=== PATIENT | male | born 1945 | race Hispanic/Latino ===

== ENCOUNTER 2016-09-15 11:27 | Inpatient (IN) | payer MEDICARE ==
--- NOTE | 2016-09-15 11:54 | ED PDOC ---
Psych Transfer Clearance - Clearance Statement Clearance Statement: Reviewed vital signs, lab results and transfer papers. Patient clinically stable for psychiatric admission. PT CLEARED BY DR ALCANTARA
[2016-09-15 12:48] VITALS: BMI 22.3
[2016-09-15] MEDS ORDERED: Bismuth Subsalicylate 262 mg/15 ml Sus (240 ml) PO PRN (12:56)
[2016-09-15] MEDS ORDERED: Magnesium Hydroxide Susp 30 ml UD PO PRN (12:56)
[2016-09-15] MEDS ORDERED: Alum-Mag Hydrox-Simethicone Susp (30 mL) PO PRN (12:56)
--- NOTE | 2016-09-15 13:55 | CP.PCM.CON ---
History of Present Illness - History of Present Illness History of Present Illness: 71 yo male with history of mental retardation, DM2, Hypothyroidism, Glaucoma and Pacemaker placement? sent here from a supportive [facility] because of worsening depression. Review of Systems - Review of Systems Systems not reviewed;Unavailable: Other (mental retardation) Past Patient History - Tetanus Immunizations Tetanus Immunization: Unknown - Past Social History Smoking Status: Unknown If Ever Smoked Alcohol: None - CARDIAC Hx Cardiac Disorders: Yes Hx Pacemaker: Yes (left) - PULMONARY Hx Respiratory Disorders: No - NEUROLOGICAL Other/Comment: mentally challenged, low IQ - HEENT Hx Glaucoma: Yes - RENAL Hx Chronic Kidney Disease: No - ENDOCRINE/METABOLIC Hx Diabetes Mellitus Type 2: Yes Hx Hypothyroidism: Yes - HEMATOLOGICAL/ONCOLOGICAL Hx Blood Disorders: No - INTEGUMENTARY Hx Dermatological Problems: No - MUSCULOSKELETAL/RHEUMATOLOGICAL Hx Falls: Yes Hx Unsteady Gait: No - GASTROINTESTINAL Hx Gastrointestinal Disorders: No - GENITOURINARY/GYNECOLOGICAL Hx Genitourinary Disorders: No - PSYCHIATRIC Hx Anxiety: Yes Hx Bipolar Disorder: Yes Hx Depression: Yes Hx Schizophrenia: Yes - SURGICAL HISTORY Hx Surgeries: No - ANESTHESIA Hx Anesthesia: No Meds Allergies/Adverse Reactions: Allergies Allergy/AdvReac Type Severity Reaction Status Date / Time No Known Allergies Allergy Verified 09/15/16 11:49 - Medications Medications: Current Medications Acetaminophen (Tylenol 325mg Tab) 650 mg PO Q4 PRN PRN Reason: Pain, moderate (4-7) Al Hydrox/Mg Hydrox/Simethicone (Maalox Plus 30 Ml) 30 ml PO Q4 PRN PRN Reason: Dyspepsia Bismuth Subsalicylate (Pepto-Bismol) 524 mg PO Q4 PRN PRN Reason: Diarrhea Lorazepam (Ativan) 0.5 mg PO HS PRN PRN Reason: Insomnia Stop: 09/29/16 12:57 Lorazepam (Ativan) 0.5 mg PO Q6 PRN PRN Reason: Anixety/Agitation Stop: 09/29/16 12:57 Magnesium Hydroxide (Milk Of Magnesia) 30 ml PO HS PRN PRN Reason: Constipation Physical Exam - Constitutional Appears: No Acute Distress - Head Exam Head Exam: ATRAUMATIC - Eye Exam Eye Exam: absent: Scleral icterus - ENT Exam ENT Exam: Mucous Membranes Moist - Neck Exam Neck exam: Negative for: Meningismus - Respiratory Exam Respiratory Exam: absent: Rhonchi, Wheezes, Respiratory Distress - Cardiovascular Exam Cardiovascular Exam: REGULAR RHYTHM, +S1, +S2 - GI/Abdominal Exam GI & Abdominal Exam: Soft. absent: Tenderness - Rectal Exam Rectal Exam: Deferred - Neurological Exam Neurological exam: Alert - Psychiatric Exam Psychiatric exam: Flat Affect - Skin Skin Exam: Dry, Intact Results - Vital Signs Recent Vital Signs: Last Vital Signs Temp 97.7 F 09/15/16 13:12 Pulse 60 09/15/16 13:12 Resp 18 09/15/16 13:12 BP 120/64 09/15/16 13:12 Pulse Ox 97 09/15/16 11:53 - Labs Result Diagrams: 09/16/16 06:00 09/16/16 06:00 Assessment & Plan (1) Depression Status: Acute Comment: psyche is managing (2) Mental retardation Status: Acute Comment: psyche is managing (3) DM2 (diabetes mellitus, type 2) Status: Acute Comment: diabetic diet. accuchek ACHS. continue Metformin and Januvia (4) Hypothyroid Status: Acute Comment: continue Levothyroxine 50mcg PO daily
--- NOTE | 2016-09-15 14:16 | PCM.PSYCH ---
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 pt has a history of cognitive delay/ mental retardation(scale is unknown per staff). pt does not have family, reportedly receiving ssd, has history of glaucoma (unknown doctor, unknown last exam per [facility] admin "simone". Pt has history for pacemaker placement ( unknown last exam unknown md). Hx of htn, hypothyroidism, coronary artery disease. pt has history of previous attempts and desires defers detail. reports father is a number of years misses him at times wants to join him. at the time of this writing pt contracts for safety, is seated near nursing station. Current Medications: Active Medications Generic Name Dose Route Start Last Admin Trade Name Freq PRN Reason Stop Dose Admin Acetaminophen 650 mg 09/15/16 12:56 Tylenol 325mg Tab PO Q4 PRN Pain, moderate (4-7) Al Hydrox/Mg Hydrox/Simethicone 30 ml 09/15/16 12:56 Maalox Plus 30 Ml PO Q4 PRN Dyspepsia Bismuth Subsalicylate 524 mg 09/15/16 12:56 Pepto-Bismol PO Q4 PRN Diarrhea Lorazepam 0.5 mg 09/15/16 12:56 Ativan PO 09/29/16 12:57 HS PRN Insomnia Lorazepam 0.5 mg 09/15/16 12:56 Ativan PO 09/29/16 12:57 Q6 PRN Anixety/Agitation Magnesium Hydroxide 30 ml 09/15/16 12:56 Milk Of Magnesia PO HS PRN Constipation Past Psychiatric History - Past Psychiatric History Prior Professional Help: hx mental retardation (unknown intelligence level), hx of suicidal attemp At what hospital: unknown Nature of Treatment: inpt outpt unknown detail History of Family Illness: unknown Pertinent Medical Hx (Current Medical&Sleep Prob, Allergies): Allergies Allergy/AdvReac Type Severity Reaction Status Date / Time No Known Allergies Allergy Verified 09/15/16 11:49 Review of Systems - EENT Eyes: As Per HPI - Psychiatric Psychiatric: Abnormal Sleep Pattern, Anhedonia, Depression, Suicidal Ideation Mental Status Examination - Personal Presentation Personal Presentation: Looks stated age - Affect Affect: Constricted - Motor Activity Motor Activity: Calm - Reliability in Providing Information Reliability in Providing Information: Poor, due to cognitve impairment - Speech Speech: Organized Additional comments: under productive - Mood Mood: Depressed - Formal Thought Process Formal Thought Process: Circumstantial - Obsessions/Compulsions Obsessions: No Compulsions: No - Cognitive Functions Orientation: Person Sensorium: Alert Attention/Concentration: Easily distracted Estimate of Intelligence: Below average Judgement: Imparied, as evidence by: Poor judgement Memory: Recent impaired, as evidence by: Inability to recall events of the day, Recent imparied as evidence by:Inability to complete 3/3 object recall, Recent impaired, as evidenced by: Other, Remote impaired as evidenced by: Inability to recall sig life events, Remote impaired as evidenced by: Inability to recall historical events, Remote impaired as evidenced by: Other - Risk Risk: Suicidal (reddened jason rectal area per staff no notable wounds) DSM 5 DX - DSM 5 DSM 5 Diagnosis: schizoaffective disorder bipolar type suicide attempt: ingestion of bleach (did not actually drink) history of glaucoma ? visually impaired mental retardation/cognitive impaired hx diabetes type II hx of hypothyroidsim hx of CAD hx of pacemaker - Recommended/Plan of Treatment Treatment Recommendations and Plan of Treatment: inpt admission per attending vital signs and visual observation per protocol per status get up slowly use of large print when possible colateral information from detention administer "simone" MINIMAL INFORMATION AVAILABLE Projected ELOS: 5-7 DAYS Prognosis: guarded Discharge Plan and Discharge Criteria: safety - Smoking Cessation Smoking Cessation Initiated: No Reason for not providing: deferred
[2016-09-15] MEDS ORDERED: Naproxen 500 MG TAB PO PRN (15:00)
[2016-09-15] MEDS: PrednisoLONE 1% OPTH SUSP OU SCH (16:02)
--- NOTE | 2016-09-15 20:05 | CARD ---
APPROVED REPORT EKG Measurement Heart [id number] <Conclusion> Atrial-sensed ventricular-paced rhythm Abnormal ECG
[2016-09-16 05:31] VITALS: O2SAT 99
[2016-09-16] MEDS: Levothyroxine 50 MCG TAB PO SCH (06:15)
[2016-09-16 06:32] LABS: HEMOGLOBIN 12.7 g/dL (12.0-18.0); MEAN CELL VOLUME 85.6 fl (80.0-94.0); MEAN CORPUSCULAR HEMOGLOBIN 27.9 pg (27.0-31.0); MEAN CORPUSCULAR HGB CONC 32.5 g/dL (33.0-37.0); RBC 4.57 Mil/uL (4.40-5.90); RED CELL DISTRIBUTION WIDTH 14.6 % (11.5-14.5); WHITE BLOOD COUNT 5.1 K/uL (4.8-10.8)
[2016-09-16 06:46] LABS: ALB/GLOB RATIO 1.9 (1.0-2.1); ALBUMIN 4.4 g/dL (3.5-5.0); ALT/SGPT 40 U/L (21-72); AST/SGOT 32 U/L (17-59); BLOOD UREA NITROGEN 24 mg/dl (9-20); CALCIUM 9.7 mg/dL (8.4-10.2); GFR AFRICAN-AMERICAN > 60; GFR NON-AFRICAN AMERICAN 50; HDL CHOLESTEROL 45 MG/DL (30-70)
[2016-09-16 06:52] LABS: URINE BILIRUBIN NEGATIVE (NEGATIVE); URINE BLOOD NEGATIVE (NEGATIVE); URINE CLARITY CLEAR (Clear); URINE COLOR YELLOW (YELLOW); URINE GLUCOSE (UA) NEG (Normal); URINE LEUKOCYTE ESTERASE NEG Leu/uL (Negative); URINE NITRATE NEGATIVE (NEGATIVE); URINE PROTEIN NEGATIVE (NEGATIVE); URINE UROBILINOGEN 0.2-1.0 mg/dL (0.2-1.0)
[2016-09-16 06:57] LABS: LDL CHOLESTEROL 124 mg/dL (0-129)
[2016-09-16] MEDS ORDERED: BUPROPION PO SCH (09:00)
[2016-09-16] MEDS: PrednisoLONE 1% OPTH SUSP OU SCH ×3 (09:42→17:25)
[2016-09-16 13:34] LABS: FOLATE 8.9 ng/mL
--- NOTE | 2016-09-16 17:27 | PCM.PYCHPN ---
Psychiatric Progress Note - Psychiatric Progress Note Patient seen today, length of contact: chart reviewed,case discussed with team Patient Chief Complaint: wanted to drink bleach to to kill myelf I was thinking of my father-still think of him I cant live by myself-does not want to kill self, contracts for safety, per ability pt placed near nursing station Problems Identified/Issues Discussed: alteration in mood, alteration in self care, family circumstances Medical Problems: per chart pt seen by hospitalist Diagnostic Results: per psychiatry per medicine per nursing per social work per recreational therapy DSM 5 Symptoms Update: lability in mood, limited intellectual functioning Medication Change: No Medical Record Reviewed: Yes Mental Status Examination - Cognitive Function Orientation: Person, Place, Situation Memory: Impaired Attention: Poor Concentration: Poor Association: Loose Fund of Knowledge: Poor Decription of patient's judgement and insights: impaired - Mood Mood: Depressed - Affect Affect: Constricted - Speech Speech: Soft - Formal Thought Process Formal Thought Process: Circumstantial - Homicidal Ideation Homicidal Ideation: No Goal/Treatment Plan - Goal/Treatment Plan Need for Continued Stay: Remain at risks for inpatient hospitalization, Severe functional impairment Progress Toward Problem(s) and Goals/Treatment Plan: inpt admission per attending vital signs and visual observation per protocol per status get up slowly adjust medications per status-pt to start buproprion 75mg po day use of large print when possible colateral information from [facility] administer "simone" MINIMAL INFORMATION AVAILABLE kajal has been in contact with [facility] team discharge planning in progress Estimated Date of D/C: 09/22/16 - Smoking Cessation Smoking Cessation Initiated: No Reason for not providing: deferred
[2016-09-17] MEDS: Levothyroxine 50 MCG TAB PO SCH (06:07)
[2016-09-17] MEDS: PrednisoLONE 1% OPTH SUSP OU SCH ×3 (08:35→16:27)
--- NOTE | 2016-09-17 14:45 | PCM.PYCHPN ---
Psychiatric Progress Note - Psychiatric Progress Note Patient seen today, length of contact: chart reviewed,case discussed with team, Patient Chief Complaint: pt is reported to be seated off by self, reports is feeling down, missing father , requires redirections with adherence with plan of care, pt continues to report being depressed thinking about father who is wanted to drink bleach to to kill myelf I was thinking of my father-still think of him I cant live by myself-does not want to kill self, contracts for safety, per ability pt placed near nursing station Problems Identified/Issues Discussed: alteration in mood, alteration in self care, family circumstances Medical Problems: per chart pt seen by hospitalist Diagnostic Results: per psychiatry per medicine per nursing per social work per recreational therapy DSM 5 Symptoms Update: alteration in cognition alteration in self care alteration in mood Medication Change: No Medical Record Reviewed: Yes Mental Status Examination - Cognitive Function Orientation: Person, Place, Situation Memory: Impaired Attention: Poor Concentration: Poor Association: Loose Fund of Knowledge: Poor Decription of patient's judgement and insights: impaired - Mood Mood: Depressed - Affect Affect: Constricted - Speech Speech: Soft - Formal Thought Process Formal Thought Process: Circumstantial - Suicidal Ideation Suicidal Ideation: Yes Plan: placed near nursing station says would ask for help if wanted to hurt self - Homicidal Ideation Homicidal Ideation: No Goal/Treatment Plan - Goal/Treatment Plan Need for Continued Stay: Remain at risks for inpatient hospitalization, Severe functional impairment Progress Toward Problem(s) and Goals/Treatment Plan: inpt/milieu vital signs and visual observation per protocol per status-pt maintained near nursing station get up slowly use of large print when possible greaser operator has been in contact with [facility] team pt is receiving wellbutrin 75mg po am for mood and anhedonia pt is receiving abilify 30mg po day for paranoia/psychosis, mood pt is receiving remeron 45mg po hs-for mood, sleep, appetite discharge planning in progress pt may need ltc placment Estimated Date of D/C: 09/22/16 - Smoking Cessation Smoking Cessation Initiated: No Reason for not providing: deferred
[2016-09-18] MEDS: Levothyroxine 50 MCG TAB PO SCH (06:53)
[2016-09-18] MEDS: PrednisoLONE 1% OPTH SUSP OU SCH ×2 (08:44→16:17)
--- NOTE | 2016-09-18 12:48 | PCM.PYCHPN ---
Psychiatric Progress Note - Psychiatric Progress Note Patient seen today, length of contact: discussed with team Patient Chief Complaint: nothing helps me sleep Problems Identified/Issues Discussed: pt reports poor sleep. latuda not in hospital formulary but was taking per [facility]. now on abilify. states his main concern is sleep and nothing was helping. he was on trazodone, but will attempt doxepin here. pt agrees with this change Medication Change: Yes Medical Record Reviewed: Yes Mental Status Examination - Cognitive Function Orientation: Person, Place, Situation Memory: Impaired Attention: Poor Concentration: Poor Association: Loose Fund of Knowledge: Poor - Mood Mood: Depressed - Affect Affect: Constricted - Speech Speech: Soft - Formal Thought Process Formal Thought Process: Circumstantial - Suicidal Ideation Suicidal Ideation: No Plan: denies currently - Homicidal Ideation Homicidal Ideation: No Goal/Treatment Plan - Goal/Treatment Plan Need for Continued Stay: Remain at risks for inpatient hospitalization, Severe functional impairment Progress Toward Problem(s) and Goals/Treatment Plan: schizoaffective disorder continiue with current meds will start doxepin at hs for sleep along with remeron continue with abilify for psychosis Estimated Date of D/C: 09/22/16
[2016-09-19] MEDS: Levothyroxine 50 MCG TAB PO SCH (05:55)
[2016-09-19] MEDS: PrednisoLONE 1% OPTH SUSP OU SCH ×2 (08:46→16:32)
--- NOTE | 2016-09-19 10:37 | PCM.PYCHPN ---
Psychiatric Progress Note - Psychiatric Progress Note Patient seen today, length of contact: discussed with team Patient Chief Complaint: i feel okay today Problems Identified/Issues Discussed: pt with improved sleep. no reports of medication side effects. resting comfortably in room currently. Medication Change: No ( ) Medical Record Reviewed: Yes Mental Status Examination - Cognitive Function Orientation: Person, Place, Situation Memory: Impaired Attention: Poor Concentration: Poor Association: Loose Fund of Knowledge: Poor Decription of patient's judgement and insights: superficial - Mood Mood: Depressed - Affect Affect: Constricted - Speech Speech: Soft - Formal Thought Process Formal Thought Process: Circumstantial - Suicidal Ideation Suicidal Ideation: No - Homicidal Ideation Homicidal Ideation: No Goal/Treatment Plan - Goal/Treatment Plan Need for Continued Stay: Remain at risks for inpatient hospitalization, Severe functional impairment Progress Toward Problem(s) and Goals/Treatment Plan: schizoaffective disorder continiue with current meds will continue doxepin at hs for sleep along with remeron continue with abilify for psychosis Estimated Date of D/C: 09/22/16
[2016-09-20] MEDS: Levothyroxine 50 MCG TAB PO SCH (06:03)
[2016-09-20] MEDS: PrednisoLONE 1% OPTH SUSP OU SCH ×2 (08:16→16:49)
--- NOTE | 2016-09-20 12:18 | PCM.PYCHPN ---
Psychiatric Progress Note - Psychiatric Progress Note Patient seen today, length of contact: discussed with team Patient Chief Complaint: i am fine Problems Identified/Issues Discussed: pt has no c/o medication side effects. no aggression or agitation. sleep improved. Medication Change: No ( ) Medical Record Reviewed: Yes Mental Status Examination - Cognitive Function Orientation: Person, Place, Situation Memory: Impaired Attention: Poor Concentration: Poor Association: Loose Fund of Knowledge: Poor Decription of patient's judgement and insights: superficial - Mood Mood: Depressed - Affect Affect: Constricted - Speech Speech: Soft - Formal Thought Process Formal Thought Process: Circumstantial - Suicidal Ideation Suicidal Ideation: No - Homicidal Ideation Homicidal Ideation: No Goal/Treatment Plan - Goal/Treatment Plan Need for Continued Stay: Remain at risks for inpatient hospitalization, Severe functional impairment Progress Toward Problem(s) and Goals/Treatment Plan: schizoaffective disorder continiue with current meds will continue doxepin at hs for sleep along with remeron continue with abilify for psychosis Estimated Date of D/C: 09/22/16
[2016-09-21] MEDS: Levothyroxine 50 MCG TAB PO SCH (06:04)
[2016-09-21] MEDS: PrednisoLONE 1% OPTH SUSP OU SCH ×2 (08:40→16:15)
--- NOTE | 2016-09-21 08:45 | PCM.PYCHPN ---
Psychiatric Progress Note - Psychiatric Progress Note Patient seen today, length of contact: Patient evaluated, case discussed with team, chart reviewed, 35 min Patient Chief Complaint: "I'm not feeling suicidal anymore." Problems Identified/Issues Discussed: Patient reports that her is no longer feeling suicidal. He reports improvement in his depressive symptoms. He continues to be quiet and withdrawn at times, but states that he prefers to be alone. No hallucinations/delusions/paranoia. Medication Change: No ( ) Medical Record Reviewed: Yes Mental Status Examination - Cognitive Function Orientation: Person, Place, Situation Memory: Impaired Attention: Poor Concentration: Poor Association: Loose Fund of Knowledge: Poor Decription of patient's judgement and insights: Fair I/J - Mood Mood: Depressed - Affect Affect: Constricted - Speech Speech: Soft - Formal Thought Process Formal Thought Process: Circumstantial Psychotic Thoughts and Behaviors: NO AH/VH/paranoia - Suicidal Ideation Suicidal Ideation: No - Homicidal Ideation Homicidal Ideation: No Goal/Treatment Plan - Goal/Treatment Plan Need for Continued Stay: Remain at risks for inpatient hospitalization, Severe functional impairment Progress Toward Problem(s) and Goals/Treatment Plan: Schizoaffective disorder; patient's depressive symptoms are improving and he no longer reports active suicidal ideation/plan/intent. -Continue to monitor for safety -Disposition planning -Continue current medications -Individual and group therapy Estimated Date of D/C: 09/22/16
[2016-09-22 05:51] VITALS: BP 100/55; PULSE 61; RESP 18; TEMP 97.4
--- NOTE | 2016-09-22 08:11 | PCM.PYCHDC ---
Mental Status Examination - Mental Status Examination Orientation: Person, Place, Situation, Time Memory: Impaired Mood: Neutral Affect: Broad Speech: Appropriate Attention: Poor Concentration: Poor Association: Loose Fund of Knowledge: Poor Formal Thought Process: Loosening of associations Description of patient's judgement and insight: Fair I/J Psychotic Thoughts and Behaviors: NO AH/VH/paranoia Suicidal Ideation: No Current Homicidal Ideation?: No Discharge Summary - Discharge Note Reason for Hospitalization: As per initial HPI note: " living in supportive correction for more than ten years (per higher education administrator of correction), pt is generally a loaner, 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 pt has a history of cognitive delay/mental retardation(scale is unknown per staff) . pt does not have family, reportedly receiving ssd, has history of glaucoma ( unknown doctor, unknown last exam per senior care admin "simone". Pt has history for pacemaker placement (unknown last exam unknown md). Hx of htn, hypothyroidism, coronary artery disease. pt has history of previous attempts and desires defers detail. reports father is a number of years misses him at times wants to join him. at the time of this writing pt contracts for safety, is seated near nursing station." Psychiatric History (includes Medical, Family, Personal Hx): Patient unable to provide extensive psychiatric history Laboratory Data: Abnormal Lab Results 09/22/16 09/22/16 06:22 07:19 POC Glucose (mg/dL) 66 119 H Consultations:: List each consultation separately and include: 1. Reason for request. 2. Findings. 3. Follow-up Consultations: Medicine consult Summary of Hospital Course include:: 1. Description of specific treatment plan utilized for patients during their course of treatmen. 2. Summarize the time- course for resolution of acute symptoms and/or regressed behaviors. 3. Describe issues identified and worked on during hospitalization. 4. Describe medication utilized. 5. Describe medical problems identified and treated. 6. Reassessment of suicide risk Summary of Hospital Course: Patient admitted to the hospital. He participated in individual and group therapy. He was stabilized on Abilify 30 mg PO Daily, Wellbutrin 75 mg PO Daily , Doxepin 10 mg PO HS and Remeron 45 mg PO HS. He no longer reports ideation to harm himself and has bright affect. He is psychiatrically stable for discharge. - Final Diagnosis (DSM 5) Condition upon Discharge: FAIR DSM 5: Schizoaffective Disorder Disposition: HOME/ ROUTINE Follow-up Treatment Plan: Schizoaffective disorder; patient is psychiatrically stable for discharge. -Continue current medications: Abilify 30 mg PO Daily, Wellbutrin 75 mg PO Daily , Doxepin 10 mg PO HS and Remeron 45 mg PO HS (prescriptions called into his pharmacy [facility] [phone]) -Discharge back to correction - Smoking Cessation Smoking Cessation Medication prescribed: No Reason for not providing: Not indicated - Antipsychotic Medications Pt discharged on 2 or more routine antipsychotic medications: No
[2016-09-22] MEDS: Levothyroxine 50 MCG TAB PO SCH (08:36)
[2016-09-22] MEDS: PrednisoLONE 1% OPTH SUSP OU SCH (08:36)
== END 2016-09-22 11:06 | disposition home or self-care (01) | DRG 885 ==
LOC: H.ER 11:27 → H.ERHOLD 11:54 → H.STEP 12:39
PROVIDERS: ADMIT Psychiatry & Neurology Psychiatry; ATTEND Psychiatry & Neurology Psychiatry
DX: F25.0 Schizoaffective disorder, bipolar type (principal); E11.9 Type 2 diabetes mellitus without complications; F79 Unspecified intellectual disabilities; I25.10 Atherosclerotic heart disease of native coronary artery without angina pectoris; I10 Essential (primary) hypertension; E03.9 Hypothyroidism, unspecified; H40.9 Unspecified glaucoma; Z79.84 Long term (current) use of oral hypoglycemic drugs; Z95.0 Presence of cardiac pacemaker